=== PATIENT | female | born 1990 | race Asian ===

== ENCOUNTER → 2023-01-14 08:18 | Outpatient (CLI) | payer OTHER, SELFPAY | PROVIDERS: Family Provider Student in an Organized Health Care Education/Training Program; PCP Student in an Organized Health Care Education/Training Program; Referring Provider Student in an Organized Health Care Education/Training Program; Visit Provider Student in an Organized Health Care Education/Training Program | DX: M79.2 Neuralgia and neuritis, unspecified (principal) | CPT/HCPCS: 95886; 95912 ==